=== PATIENT | male | born 1995 | race Caucasian/White ===

== ENCOUNTER 2021-11-27 02:10 | Emergency (ER) | payer OTHER ==
[~2021-11-27] VITALS: Ht 170.2 cm; Wt 75.0 kg
[2021-11-27] MEDS ORDERED: LIDOCAINE 2%/EPI 1:200,000/PF 10 ML VIAL ID ONE (03:15)
[2021-11-27] MEDS ORDERED: PERTUSS(ACELL),DIPH,TET VAC/PF 0.5 ML SYRINGE IM. ONE (05:45)
[2021-11-27 10:32] VITALS: BP 129/83
[2021-11-27] MEDS ORDERED: AMOX1TAB16 PO (11:13)
[2021-11-27] MEDS ORDERED: [UNRECOGNIZED DRUG - CODE] NASAL (11:25)
== END 2021-11-27 11:38 | disposition home or self-care (01) ==
LOC: EMS 02:11
DX: S02.831A Fracture of medial orbital wall, right side, initial encounter for closed fracture (principal); S02.31XA Fracture of orbital floor, right side, initial encounter for closed fracture; S01.111A Laceration without foreign body of right eyelid and periocular area, initial encounter; F12.90 Cannabis use, unspecified, uncomplicated; F17.210 Nicotine dependence, cigarettes, uncomplicated; Y00.XXXA Assault by blunt object, initial encounter; Y93.89 Activity, other specified; Y92.89 Other specified places as the place of occurrence of the external cause; Y99.8 Other external cause status
CPT/HCPCS: 12014; 70450; 70486; 72125; 90471; 90715; 99285